=== PATIENT | female | born 1995 | race Hispanic/Latino ===

== ENCOUNTER 2021-06-19 12:50 | Outpatient (CLI) | payer OTHER ==
[2021-06-20 13:49] LABS: SARS-CoV-2 PCR by NAA Not Detected (NotDetected)
== END 2021-06-19 12:51 | disposition home or self-care (01) ==
LOC: CSHLAB 12:50
PROVIDERS: ATTEND Family Medicine
DX: Z20.822 Contact with and (suspected) exposure to COVID-19 (principal)
CPT/HCPCS: U0003; U0005

== ENCOUNTER 2021-06-21 15:31 | Day surgery (SDC) | payer OTHER ==
[2021-06-21 15:52] VITALS: BMI 25.0
[2021-06-21] MEDS ORDERED: hydrALAZINE 20 MG/ML VIAL SLOW IVP PRN (17:10)
[2021-06-21] MEDS ORDERED: Morphine 10 MG/ML VIAL IM SCH (21:15)
[2021-06-21] MEDS ORDERED: Morphine 10 MG/ML VIAL ONE (21:21)
== END 2021-06-21 21:40 | disposition home or self-care (01) ==
LOC: CSHLD/OP 15:31
PROVIDERS: ATTEND Family Medicine
DX: O47.1 False labor at or after 37 completed weeks of gestation (principal); Z3A.38 38 weeks gestation of pregnancy
CPT/HCPCS: J2270

== ENCOUNTER 2021-06-22 10:24 | Inpatient (IN) | payer MEDICAID, OTHER, SELFPAY ==
[2021-06-22] MEDS ORDERED: hydrALAZINE 20 MG/ML VIAL SLOW IVP PRN ×2 (11:24→15:38)
[2021-06-22] MEDS ORDERED: Morphine 4 MG/ML VIAL IM SCH (13:30)
[2021-06-22] MEDS ORDERED: Promethazine HCl 25 MG/ML VIAL IM SCH (13:30)
[2021-06-22] MEDS ORDERED: Morphine 4 MG/ML VIAL SLOW IVP SCH ×2 (13:30→22:15)
[2021-06-22] MEDS ORDERED: Butorphanol Tartrate 1 MG/ML VIAL SLOW IVP PRN (15:38)
[2021-06-22] MEDS ORDERED: Ondansetron PF 4 MG/2 ML Vial IVP PRN (15:38)
[2021-06-22] MEDS ORDERED: Promethazine HCl 25 MG/ML VIAL IM PRN (15:38)
[2021-06-22] MEDS ORDERED: Acetaminophen 500 MG TAB PO PRN (15:38)
[2021-06-22] MEDS ORDERED: Lactated Ringer's 1,000 ML IV SCH (15:45)
[2021-06-22 16:42] LABS: Hemoglobin 10.8 g/dL (12.0-15.5); Mean Corpuscular HGB CONC 30.9 g/dL (32.0-36.0); Mean Corpuscular Hemoglobin 27.9 pg (27.0-33.0); Mean Corpuscular Volume 90.4 fl (81.6-98.3); Platelet Count 160 10x3/uL (150-450); RBC Distribution Width 16.7 % (11.5-14.5); Red Blood Cell (RBC) Count 3.87 10x6/uL (3.90-5.03)
[2021-06-22 17:23] LABS: Hep B Surf Ag Non-Reactive S/CO (NonReactive); Syphilis Antibody Nonreactive (Nonreactive); Syphilis Antibody Index 0.04 S/CO (<1.00 Non-Reactive)
[2021-06-22 17:24] LABS: HBSAg Index 0.26 S/CO (0-0.99)
[2021-06-22] MEDS ORDERED: Terbutaline Sulfate 1 MG/ML VIAL ONE (19:29)
[2021-06-22] MEDS ORDERED: Dextrose 5%-Lactated Ringers 1,000 ML IV SCH (20:30)
[2021-06-22] MEDS ORDERED: NS w/ Oxytocin 30 units 500 ML IV SCH (21:00)
[2021-06-22 22:03] VITALS: BMI 28.5
[2021-06-22] MEDS ORDERED: Lidocaine 1% (PF) 30 ML VIAL ONE (23:31)
[2021-06-23 01:12] LABS: pH (Cord, venous) 7.198 (7.250-7.350)
[2021-06-23] MEDS ORDERED: Zolpidem Tartrate 5 MG TAB PO PRN (03:21)
[2021-06-23] MEDS ORDERED: Lanolin Ointment 7 GM TUBE TOP PRN (03:21)
[2021-06-23] MEDS ORDERED: Bisacodyl 10 MG SUPP PR PRN (03:21)
[2021-06-23] MEDS ORDERED: Ondansetron PF 4 MG/2 ML Vial IVP PRN (03:21)
[2021-06-23] MEDS ORDERED: Boostrix 0.5 ML (Tdap) VIAL IM ONE (03:21)
[2021-06-23] MEDS ORDERED: Milk Of Magnesia 30 ML UDCUP PO PRN (03:21)
[2021-06-23] MEDS ORDERED: Benzocaine-Menthol 82.5 ML CAN TOP PRN (03:21)
[2021-06-23] MEDS ORDERED: hydrALAZINE 20 MG/ML VIAL SLOW IVP PRN (03:21)
[2021-06-23] MEDS: Ibuprofen 800 MG TAB PO SCH ×3 (05:50→22:32)
[2021-06-23 06:04] LABS: Hemoglobin 9.9 g/dL (12.0-15.5)
[2021-06-23] MEDS: Docusate 100 MG CAP PO SCH ×2 (08:50→22:32)
[2021-06-23] MEDS: Prenatal Vitamin 1 TAB PO SCH (08:51)
[2021-06-23] MEDS: Ferrous Sulfate 325 MG TAB PO SCH ×2 (08:51→18:31)
[2021-06-24] MEDS: Ibuprofen 800 MG TAB PO SCH ×3 (05:09→22:05)
[2021-06-24] MEDS: Ferrous Sulfate 325 MG TAB PO SCH ×2 (09:57→17:00)
[2021-06-24] MEDS: Docusate 100 MG CAP PO SCH ×2 (09:57→22:05)
[2021-06-24] MEDS: Prenatal Vitamin 1 TAB PO SCH (09:58)
[2021-06-25] MEDS: Ibuprofen 800 MG TAB PO SCH ×2 (06:03→13:15)
[2021-06-25 08:18] VITALS: BP 127/71; TEMP 97
[2021-06-25] MEDS: Prenatal Vitamin 1 TAB PO SCH (08:42)
[2021-06-25] MEDS: Ferrous Sulfate 325 MG TAB PO SCH ×2 (08:42→17:37)
[2021-06-25] MEDS: Docusate 100 MG CAP PO SCH (08:42)
[2021-06-25] MEDS: Cepastat Lozenges 1 LOZ PO PRN ×2 (09:15→15:30)
== END 2021-06-25 17:50 | disposition home or self-care (01) | DRG 807 ==
LOC: CSHLD/OP 10:24 → CSHLD 11:35 → CSHPP 06-23 02:48
PROVIDERS: ADMIT Family Medicine; ATTEND Family Medicine
PROC: 10E0XZZ Delivery of Products of Conception, External Approach (ICD-10-PCS; principal; 2021-06-23)
DX: O76 Abnormality in fetal heart rate and rhythm complicating labor and delivery (principal); Z37.0 Single live birth; O99.02 Anemia complicating childbirth; Z3A.40 40 weeks gestation of pregnancy
CPT/HCPCS: 82805; 85014; 85018; 85027; 86780; 86850; 86900; 86901; 87340; 99285; J2270; J2550